=== PATIENT | female | born 1995 | race Caucasian/White ===

== ENCOUNTER 2025-01-24 22:28 | Emergency (ER) | payer MEDICAID ==
[~2025-01-24] VITALS: Ht 160 cm; Wt 95.0 kg
[2025-01-24 22:33] VITALS: O2SAT 97
[2025-01-24 22:42] VITALS: BP 129/98; PULSE 122; RESP 18; TEMP 37.2; O2SAT 98
[2025-01-25] MEDS: ACETAMINOPHEN 500MG TABLET PO ONE (00:16)
[2025-01-25] MEDS ORDERED: BENZ100C86 MT (01:58)
[2025-01-25] MEDS ORDERED: PRED5TAB48 MT (02:00)
== END 2025-01-25 02:21 | disposition home or self-care (01) ==
LOC: ER 22:28
DX: R05.9 Cough, unspecified (principal); I49.9 Cardiac arrhythmia, unspecified
CPT/HCPCS: 71045; 93005; 99283